=== PATIENT | female | born 1980 | race Caucasian/White ===

== ENCOUNTER 2022-05-13 12:25 | Observation (INO) ==
[2022-05-13] MEDS ORDERED: Iopamidol - 370 500 ML MLS IVP ONE (15:03)
[2022-05-13 15:33] LABS: Hematocrit 41.6 % (35.3-44.9); Hemoglobin 13.7 g/dL (11.5-15.4); Mean Corpuscular HGB Conc 32.9 g/dL (31.6-35.5); Mean Corpuscular Hemoglobin 31.1 pg (28.0-33.3); Mean Corpuscular Volume 94.5 fL (83.0-100.0); Platelet Count 159 K/mcL (140-400); Red Cell Distribution Width 12.5 % (11.5-14.5)
[2022-05-13 15:51] LABS: BUN/Creatinine Ratio 12 (6-26); Blood Urea Nitrogen 8 mg/dL (6-20); Calcium 9.1 mg/dL (8.6-10.3); Carbon Dioxide 30 mEq/L (23-29); Chloride 105 mEq/L (98-107); Glucose 85 mg/dL (70-105); Osmolality,Calculated 286 (280-300); Potassium 3.8 mEq/L (3.5-5.1); Sodium 139 mEq/L (136-145); Troponin I < 0.03 ng/mL (< 0.04); eGFR For African Americans > 60 (> 60); eGFR For Non-African Americans > 60 (> 60)
[2022-05-13] MEDS ORDERED: Gadolinium Contrast Agent (WT Based) IV PRN (18:53)
[2022-05-13] MEDS ORDERED: Ondansetron ODT 4 MG TAB.RAPDIS SL PRN (21:09)
[2022-05-13] MEDS ORDERED: Naloxone 0.4 MG/ML INJ IVP PRN (21:09)
[2022-05-13] MEDS ORDERED: Melatonin 3 MG TABLET PO PRN (21:09)
[2022-05-13 21:31] LABS: Amphetamine Screen,Urine Negative ng/mL (Cutoff=1000); Barbiturate Screen,Urine Negative ng/mL (Cutoff=200); Benzodiazepines Screen,Urine Negative ng/mL (Cutoff=200); Cannabinoid Screen,Urine Negative ng/mL (Cutoff = 50); Cocaine Screen,Urine Negative ng/mL (Cutoff= 300); Opiate Screen,Urine Negative ng/mL (Cutoff=300); Phencyclidine Screen,Urine Negative ng/mL (Cutoff=25)
[2022-05-13 21:47] LABS: Bacteria,Urine Few per hpf (None-Few); Bilirubin,Urine Negative (Negative); Blood,Urine Negative (Negative); Clarity,Urine Clear (Clear); Color,Urine Yellow (Yellow); Glucose,Urine (UA) Normal (Normal); Ketones,Urine Negative (Negative); Leukocyte Esterase,Urine Moderate (Negative); Mucus,Urine Few per lpf (None-Few); Nitrite,Urine Positive (Negative); Protein,Urine Trace mg/dL (Neg-Trace); RBC,Urine 0-3 per hpf (0-3); Specific Gravity,Urine > 1.030 (1.010-1.025); Squamous Epithelial Cell,Urine Moderate per hpf (None-Few); Urobilinogen,Urine Normal (Normal); WBC,Urine 30-50 per hpf (0-3)
[2022-05-13 23:01] LABS: Ethanol < 10 mg/dL (Less than 10)
[2022-05-13 23:03] LABS: Troponin I < 0.03 ng/mL (< 0.04)
[2022-05-14 04:28] LABS: Basophils % 0.6 %; Eosinophils # 0.1 K/mcL (0.0-0.6); Eosinophils % 2.3 %; Hematocrit 38.2 % (35.3-44.9); Hemoglobin 12.6 g/dL (11.5-15.4); Immature Granulocytes % 0.2 % (0-4); Lymphocytes # 2.3 K/mcL (0.6-4.6); Mean Corpuscular Hemoglobin 31.3 pg (28.0-33.3); Mean Platelet Volume 10.6 fL (9.4-12.4); Monocytes # 0.6 K/mcL (0.0-1.3); Monocytes % 11.3 %; Neutrophils # 2.2 K/mcL (1.6-8.9); Platelet Count 168 K/mcL (140-400); Red Blood Count 4.02 M/mcL (3.82-4.97); Red Cell Distribution Width 12.7 % (11.5-14.5); Segmented Neutrophils % 41.6 %; White Blood Count 5.2 K/mcL (4.3-11.1)
[2022-05-14 04:48] LABS: Alanine Aminotransferase 31 Units/L (7-52); Albumin 3.3 g/dL (3.5-5.7); Albumin/Globulin Ratio 1.1 (1.1-2.2); Alkaline Phosphatase 93 Units/L (34-104); Aspartate Amino Transferase 42 Units/L (13-39); BUN/Creatinine Ratio 14 (6-26); Bilirubin,Total 1.3 mg/dL (0.3-1.0); Blood Urea Nitrogen 11 mg/dL (6-20); Calcium 8.7 mg/dL (8.6-10.3); Carbon Dioxide 30 mEq/L (23-29); Chloride 105 mEq/L (98-107); Glucose 86 mg/dL (70-105); Magnesium 1.7 mg/dL (1.6-2.6); Osmolality,Calculated 289 (280-300); Phosphorous 4.3 mg/dL (2.7-4.5); Potassium 3.8 mEq/L (3.5-5.1); Sodium 140 mEq/L (136-145); Total Protein 6.3 g/dL (6.4-8.9); eGFR For African Americans > 60 (> 60); eGFR For Non-African Americans > 60 (> 60)
[2022-05-14] MEDS ORDERED: *HR* Heparin 5,000 UNIT/ML VIAL SQ SCH (06:00)
[2022-05-14] MEDS ORDERED: cefTRIAXone 1,000 MG in 0.9 % Sodium Chloride 10 ML IVP SCH (09:00)
[2022-05-14 10:15] VITALS: BP 105/67; PULSE 61; TEMP 98.2; O2SAT 94
[2022-05-14] MEDS ORDERED: traZODone 50 MG TABLET PO SCH (21:00)
== END 2022-05-14 14:45 | disposition left against medical advice (07) ==
LOC: 3BNU 12:25 → EMEROOARM 12:25 → SUATTDRO 21:05 → 3BNU 21:42
PROVIDERS: ADMIT Internal Medicine; ATTEND Nurse Practitioner